=== PATIENT | male | born 1980 | race Caucasian/White ===

== ENCOUNTER 2019-08-22 21:20 | Emergency (ER) | payer BC ==
[2019-08-22] MEDS ORDERED: NA CHLORIDE 0.9% 1,000 ML ONE ×2 (22:05→22:55)
[2019-08-22] MEDS ORDERED: FENTANYL CITR 100 MCG/2 ML ONE (22:05)
[2019-08-22] MEDS ORDERED: FAMOTIDINE 20 MG/2 ML VIAL IV ONE (22:05)
[2019-08-22] MEDS ORDERED: ONDANSETRON 4 MG/2 ML VIAL ONE (22:05)
[2019-08-22 22:13] LABS: Absolute Lymphocytes (CBC) 2.2 K/uL (0.7-4.9); Basophils % 0.4 % (0-1.3); Hematocrit 42.7 % (39.6-49.0); Lymphocytes % 34.4 % (15.3-44.8); RBC Red Blood Cell Count 4.92 M/uL (4.33-5.43)
[2019-08-22 22:27] LABS: Urine Blood NEGATIVE (NEG); Urine Glucose NEGATIVE (NEG); Urine Protein NEGATIVE (NEG); Urine Specific Gravity 1.025 (1.005-1.030)
[2019-08-22 22:29] LABS: Albumin 3.9 g/dL (3.4-5.0); Bilirubin Direct 0.1 mg/dL (0-0.2); Bilirubin Total 0.3 mg/dL (0.2-1.0); Potassium 4.2 mmol/L (3.5-5.1); Protein, Total 7.3 g/dL (6.4-8.2)
[2019-08-22] MEDS ORDERED: MAGNE/ALUM HYDROXD 30 ML UCUP ONE (23:06)
[2019-08-22] MEDS ORDERED: LIDOCAINE VISCOUS 2% SOLN 15 ML UDC ONE (23:06)
[2019-08-22] MEDS ORDERED: DICYCLOMINE HCL 10 MG CAP ONE (23:06)
--- NOTE | 2019-08-22 23:55 | EDPHYS ---
Physician Documentation [facility] Name: Amari Nelson Age: 39 yrs Sex: Male : 1980 Arrival Date: 08/22/2019 Time: 21:24 Bed 25 Private MD: ED Physician Singh Shepherd HPI: 08/22 22:00 This 39 yrs old Male presents to ER via Ambulatory with complaints of cp Abdominal Pain. 22:00 The patient presents with abdominal pain in the right upper quadrant. cp 22:00 Onset: The symptoms/episode began/occurred 2 hour(s) ago. cp 22:00 The symptoms radiate to right back. Associated signs and symptoms: Pertinent positives: cp nausea and vomiting, Pertinent negatives: blood in stools, constipation, diarrhea, dysuria, fever, palpitations, shortness of breath. The symptoms are described as constant. 22:00 The patient has experienced similar episodes in the past, a few times, with the last cp episode occurring last week. 22:00 Severity of pain: in the emergency department the pain is unchanged despite home cp interventions. Historical: - Allergies: 21:43 No Known Allergies; aj1 - Home Meds: 21:43 pantoprazole oral oral [Active]; aj1 - PMHx: 21:43 None; aj1 - PSHx: 21:43 gastric sleeve; knee surgery; aj1 - Immunization history:: Flu vaccine is up to date. - Social history:: Smoking status: Patient uses tobacco products, uses vape. - Ebola Screening: : Patient denies travel to an Ebola-affected area in the 21 days before illness onset. ROS: 22:15 Constitutional: Negative for body aches, chills, fever, poor PO intake. cp 22:15 Eyes: Negative for injury, pain, redness, and discharge. cp 22:15 Cardiovascular: Negative for chest pain, edema, palpitations. cp 22:15 Respiratory: Negative for cough, shortness of breath, wheezing. cp 22:15 Abdomen/GI: Positive for abdominal pain, nausea and vomiting, Negative for diarrhea, constipation, black/tarry stool, rectal bleeding. 22:15 Back: Positive for radiated pain, Negative for injury or acute deformity. 22:15 : Negative for urinary symptoms, testicular pain 22:15 Skin: Negative for rash. 22:15 Neuro: Negative for altered mental status, dizziness, weakness. 22:15 All other systems are negative. Exam: 22:20 Constitutional: The patient appears in no acute distress, alert, awake, cp non-diaphoretic, non-toxic, well developed, well nourished, uncomfortable. 22:20 Head/Face: Normocephalic, atraumatic. Eyes: Pupils equal round and reactive to light, cp extra-ocular motions intact. Lids and lashes normal. Conjunctiva and sclera are non-icteric and not injected. Cornea within normal limits. Periorbital areas with no swelling, redness, or edema. ENT: Nares patent. No nasal discharge, no septal abnormalities noted. Tympanic membranes are normal and external auditory canals are clear. Oropharynx with no redness, swelling, or masses, exudates, or evidence of obstruction, uvula midline. Mucous membranes moist. Chest/axilla: Normal chest wall appearance and motion. Nontender with no deformity. No lesions are appreciated. 22:20 Cardiovascular: Rate: normal, Rhythm: regular, Edema: is not appreciated, JVD: is not appreciated. 22:20 Respiratory: the patient does not display signs of respiratory distress, Respirations: normal, no use of accessory muscles, no retractions, no splinting, no tachypnea, labored breathing, is not present, Breath sounds: are clear throughout, no decreased breath sounds, no stridor, no wheezing. 22:20 Abdomen/GI: Inspection: abdomen appears normal, Bowel sounds: active, all quadrants, Palpation: soft, in all quadrants, moderate abdominal tenderness, in the right upper quadrant, rebound tenderness, is not appreciated, voluntary guarding, is elicited in the right upper quadrant. 22:20 Back: ROM is normal, CVA tenderness, is absent. 22:20 Skin: no rash present. Vital Signs: 21:43 BP 109 / 77; Pulse 91; Resp 20; Temp 98.0; Pulse Ox 98% on R/A; Weight 77.11 kg (R); aj1 Height 5 ft. 7 in. (170.18 cm) (R); Pain 7/10; 22:22 BP 109 / 68; Pulse 64; Resp 18; Pulse Ox 100% on R/A; Pain 6/10; mg2 23:46 BP 107 / 77; Pulse 60; Resp 18; Pulse Ox 100% on R/A; mg2 21:43 Body Mass Index 26.63 (77.11 kg, 170.18 cm) aj1 MDM: 21:46 Patient medically screened. cp 22:00 Differential diagnosis: cholecystitis, Cholelithiasis, gastritis, gastroesophageal cp reflux disease, pancreatitis, Peptic Ulcer Disease, Perf. Duodenal Ulcer, Perf. Gastric Ulcer. 23:53 Data reviewed: vital signs, nurses notes, lab test result(s), radiologic studies, cp ultrasound, and as a result, I will discharge patient. 23:53 Counseling: I had a detailed discussion with the patient and/or guardian regarding: the cp historical points, exam findings, and any diagnostic results supporting the discharge/admit diagnosis, lab results, radiology results, the need for outpatient follow up, for definitive care, a general surgeon, to return to the emergency department if symptoms worsen or persist or if there are any questions or concerns that arise at home. 23:53 Response to treatment: the patient's symptoms have markedly improved after treatment, cp VSS. Nausea and pain markedly improved. Will discharge to home for continued monitoring. 08/22 21:40 Order name: Basic Metabolic Panel; Complete Time: 22:30 tw4 08/22 22:30 Interpretation: Normal except: CL 110; GLUC 107; GFR 70. cp 08/22 21:40 Order name: CBC with Diff; Complete Time: 22:30 tw4 08/22 21:40 Order name: Creatinine for Radiology; Complete Time: 22:30 tw4 08/22 21:40 Order name: Hepatic Function; Complete Time: 22:30 tw4 08/22 23:56 Interpretation: Normal except: AST 92. cp 08/22 21:40 Order name: Lipase; Complete Time: 22:30 tw4 08/22 22:19 Order name: Urine Dipstick--Ancillary (enter results); Complete Time: 22:30 ar5 08/22 22:03 Order name: US Abdomen Limited cp 08/22 21:40 Order name: IV Saline Lock; Complete Time: 22:01 tw4 08/22 21:40 Order name: Labs collected and sent; Complete Time: 22:01 tw4 08/22 22:03 Order name: Urine Dipstick-Ancillary (obtain specimen); Complete Time: 22:19 cp 08/22 22:03 Order name: NPO; Complete Time: 22:19 cp Administered Medications: 22:18 Drug: NS 0.9% 1000 ml Route: IV; Rate: 1 bolus; Site: left antecubital; mg2 08/23 Follow up: Response: No adverse reaction; IV Status: Completed infusion; IV Intake: mg2 1000ml 08/22 22:18 Drug: Pepcid 20 mg Route: IVP; Site: left antecubital; mg2 08/23 Follow up: Response: No adverse reaction; Marked relief of symptoms mg2 08/22 22:18 Drug: Zofran 4 mg Route: IVP; Site: left antecubital; mg2 08/23 Follow up: Response: No adverse reaction; Marked relief of symptoms mg2 08/22 22:18 Drug: fentaNYL (PF) 25 mcg Route: IVP; Site: left antecubital; mg2 08/23 Follow up: Response: No adverse reaction; Marked relief of symptoms mg2 08/22 23:14 Drug: Bentyl 20 mg Route: PO; mg2 08/23 Follow up: Response: No adverse reaction; Marked relief of symptoms mg2 08/22 23:14 Drug: NS 0.9% 1000 ml Route: IV; Rate: 1 bolus; Site: left antecubital; mg2 08/23 00:27 Follow up: Response: No adverse reaction; IV Status: Completed infusion; IV Intake: mg2 1000ml 08/22 23:15 Drug: GI Cocktail without - (Maalox Suspension 30 ml, Lidocaine Liquid 2 % 15 mg2 ml) Route: PO; 08/23 00: Follow up: Response: No adverse reaction; Marked relief of symptoms mg2 Disposition: 08/22/19 23:54 Discharged to Home. Impression: Cholelithiasis. - Condition is Stable. - Discharge Instructions: Biliary Colic, Adult, Cholelithiasis. - Prescriptions for Bentyl 20 mg Oral Tablet - take 1 tablet by ORAL route every 6 hours As needed; 20 tablet. Zofran 4 mg Oral Tablet - take 1 tablet by ORAL route every 12 hours As needed; 20 tablet. Tramadol 50 mg Oral Tablet - take 1 tablet by ORAL route every 8 hours as needed; 12 tablet. - Medication Reconciliation Form, Thank You Letter, Antibiotic Education, Prescription Opioid Use form. - Follow up: Tobias Resendiz MD; When: 1 - 2 days; Reason: Recheck today's complaints. - Problem is new. - Symptoms have improved. Addendum: 08/24/2019 02:03 Co-signature as Attending Physician, Singh Shepherd MD I agree with the assessment and t w4 plan of care. Signatures: Dispatcher [employer] EDCori Kay RN RN aj1 Kiran Lowe PA PA cp Wadley, Terrence, MD MD tw4 Nakul Ludwig RN RN mg2 Corrections: (The following items were deleted from the chart) 08/23 00:29 08/22 23:54 08/22/2019 23:54 Discharged to Home. Impression: Cholelithiasis. Condition mg2 is Stable. Forms are Medication Reconciliation Form, Thank You Letter, Antibiotic Education, Prescription Opioid Use. Follow up: Tobias Resendiz; When: 1 - 2 days; Reason: Recheck today's complaints. Problem is new. Symptoms have improved. cp
--- NOTE | 2019-08-22 23:55 | ER ---
Nurse's Notes [facility] Name: Amari Nelson Age: 39 yrs Sex: Male : 1980 Arrival Date: 08/22/2019 Time: 21:24 Bed 25 Private MD: Diagnosis: Cholelithiasis Presentation: 08/22 21:40 Presenting complaint: Patient states: Upper abdominal pain that radiates to the back aj1 that started an hour ago. Patient vomited x1. Denies fever. Reports that he had a similar episode on Saturday but it resolved on its own. Transition of care: patient was not received from another setting of care. Onset of symptoms was August 22, 2019. Risk Assessment: Do you want to hurt yourself or someone else? Patient reports no desire to harm self or others. Initial Sepsis Screen: Does the patient meet any 2 criteria? No. Patient's initial sepsis screen is negative. Does the patient have a suspected source of infection? No. Patient's initial sepsis screen is negative. Care prior to arrival: None. 21:40 Method Of Arrival: Ambulatory [facility] 21:40 Acuity: ALEKSANDRA 3 aj1 Triage Assessment: 21:43 General: Appears uncomfortable, Behavior is cooperative, restless. Pain: Complains of aj1 pain in epigastric area, right upper quadrant and left upper quadrant. Neuro: Level of Consciousness is awake, alert, obeys commands. Cardiovascular: Patient's skin is warm and dry. Respiratory: Airway is patent Respiratory effort is even, unlabored, Respiratory pattern is regular, symmetrical. GI: Reports lower abdominal pain, nausea, vomiting. Historical: - Allergies: 21:43 No Known Allergies; aj1 - Home Meds: 21:43 pantoprazole oral oral [Active]; aj1 - PMHx: 21:43 None; aj1 - PSHx: 21:43 gastric sleeve; knee surgery; aj1 - Immunization history:: Flu vaccine is up to date. - Social history:: Smoking status: Patient uses tobacco products, uses vape. - Ebola Screening: : Patient denies travel to an Ebola-affected area in the 21 days before illness onset. Screenin:21 Abuse screen: Denies threats or abuse. Denies injuries from another. Nutritional mg2 screening: No deficits noted. Tuberculosis screening: No symptoms or risk factors identified. Fall Risk IV access (20 points). Assessment: 22:20 General: Appears uncomfortable, Behavior is cooperative. Pain: Complains of pain in mg2 left upper quadrant Pain radiates to back Pain currently is 6 out of 10 on a pain scale. Quality of pain is described as aching, Pain began 1 hour ago Is intermittent. Neuro: Level of Consciousness is awake, alert, obeys commands, Oriented to person, place, time, situation. Cardiovascular: Capillary refill < 3 seconds Patient's skin is warm and dry. Respiratory: Airway is patent Respiratory effort is even, unlabored, Respiratory pattern is regular, symmetrical. GI: Bowel sounds present X 4 quads. Guarding noted in left upper quadrant. : Urine is clear. EENT: No signs and/or symptoms were reported regarding the EENT system. Derm: Skin is intact, is healthy with good turgor, Skin is pink, warm \T\ dry. normal. Musculoskeletal: Circulation, motion, and sensation intact. Capillary refill < 3 seconds. 08/23 00:29 Reassessment: Patient appears in no apparent distress at this time. Patient and/or mg2 family updated on plan of care and expected duration. Pain level reassessed. Patient is alert, oriented x 3, equal unlabored respirations, skin warm/dry/pink. Patient states feeling better. Patient states symptoms have improved. Vital Signs: 08/22 21:43 BP 109 / 77; Pulse 91; Resp 20; Temp 98.0; Pulse Ox 98% on R/A; Weight 77.11 kg (R); aj1 Height 5 ft. 7 in. (170.18 cm) (R); Pain 7/10; 22:22 BP 109 / 68; Pulse 64; Resp 18; Pulse Ox 100% on R/A; Pain 6/10; mg2 23:46 BP 107 / 77; Pulse 60; Resp 18; Pulse Ox 100% on R/A; mg2 21:43 Body Mass Index 26.63 (77.11 kg, 170.18 cm) aj1 ED Course: 21:24 Patient arrived in ED. ds1 21:42 Triage completed. aj1 21:43 Arm band placed on. aj1 21:45 Kiran Lowe PA is PHCP. cp 21:46 Singh Shepherd MD is Attending Physician. cp 21:49 Nakul Ludwig, RN is Primary Nurse. mg2 22:00 Initial lab(s) drawn, by me, sent to lab. Inserted saline lock: 20 gauge in left lt1 antecubital area, using aseptic technique. 22:22 Patient has correct armband on for positive identification. Pulse ox on. NIBP on. Door mg2 closed. Warm blanket given. 22:52 US Abdomen Limited In Process Unspecified. EDMS 23:54 Tobias Resendiz MD is Referral Physician. cp 08/23 00:29 No provider procedures requiring assistance completed. IV discontinued, intact, mg2 bleeding controlled, No redness/swelling at site. Pressure dressing applied. Administered Medications: 08/22 22:18 Drug: NS 0.9% 1000 ml Route: IV; Rate: 1 bolus; Site: left antecubital; mg2 08/23 00:28 Follow up: Response: No adverse reaction; IV Status: Completed infusion; IV Intake: mg2 1000ml 08/22 22:18 Drug: Pepcid 20 mg Route: IVP; Site: left antecubital; mg2 08/23 00:28 Follow up: Response: No adverse reaction; Marked relief of symptoms mg2 08/22 22:18 Drug: Zofran 4 mg Route: IVP; Site: left antecubital; mg2 08/23 00:28 Follow up: Response: No adverse reaction; Marked relief of symptoms mg2 08/22 22:18 Drug: fentaNYL (PF) 25 mcg Route: IVP; Site: left antecubital; mg2 08/23 00:28 Follow up: Response: No adverse reaction; Marked relief of symptoms mg2 08/22 23:14 Drug: Bentyl 20 mg Route: PO; mg2 08/23 00:28 Follow up: Response: No adverse reaction; Marked relief of symptoms mg2 08/22 23:14 Drug: NS 0.9% 1000 ml Route: IV; Rate: 1 bolus; Site: left antecubital; mg2 08/23 00:27 Follow up: Response: No adverse reaction; IV Status: Completed infusion; IV Intake: mg2 1000ml 08/22 23:15 Drug: GI Cocktail without - (Maalox Suspension 30 ml, Lidocaine Liquid 2 % 15 mg2 ml) Route: PO; 08/23 00:28 Follow up: Response: No adverse reaction; Marked relief of symptoms mg2 Intake: 00:27 IV: 1000ml; Total: 1000ml. mg2 00:28 IV: 1000ml; Total: 2000ml. mg2 Outcome: 08/22 23:54 Discharge ordered by . maikol 08/23 00:29 Discharged to home ambulatory. mg2 Condition: stable Discharge instructions given to patient, Instructed on discharge instructions, follow up and referral plans. medication usage, Demonstrated understanding of instructions, follow-up care, medications, Prescriptions given X 3. 00:29 Patient left the ED. mg2 Signatures: Dispatcher [employer] EDCori Kay RN RN aj1 Estrella Llanos ds1 Kiran Lowe PA PA Nakul Arnett RN RN mg2 Irma Bullock 1
[2019-08-23 01:34] VITALS: TEMP 98
[2019-08-23 01:35] VITALS: O2SAT 100
[2019-08-23 01:37] VITALS: BP 107/77
--- NOTE | 2019-08-23 09:54 | RAD REPORT ---
EXAM DESCRIPTION: US - Abdomen Exam Limited - 08/23/2019 12:49 am CLINICAL HISTORY: ABD PAIN Preliminary findings provided at the time of the study. COMPARISON: No comparisons FINDINGS: Multiple small sub centimeter mobile gallstones are identified. Wall thickness is upper no rmal, accentuated by partial contraction. No pericholecystic fluid. No common duct stone or biliary tree dilatation identified. IMPRESSION: Multi stone cholelithiasis in a partially contracted gallbladder. Gallbladder wall asses sment is limited. No duct stone or biliary tree dilatation.
== END 2019-08-23 00:29 | disposition home or self-care (01) ==
LOC: ER 21:20
DX: K80.20 Calculus of gallbladder without cholecystitis without obstruction (principal); Z72.0 Tobacco use
CPT/HCPCS: 96361; 85025; 80048; 36415; 80076; 81003; 83690; 76705; 96375; 96374; 99284; J3010; J7030 ×2; J2405